=== PATIENT | male | born 1960 | race Caucasian/White ===

== ENCOUNTER 2017-07-06 08:52 | Observation (INO) | payer SELFPAY ==
[~2017-07-06] VITALS: Ht 188 cm; Wt 113.6 kg
[2017-07-06] VITALS (9 sets, daily range): BP systolic 139–185; BP diastolic 82–101; PULSE 75–94; RESP 17–18; TEMP 98.4–99; O2SAT 95–97
[2017-07-06] MEDS: SODIUM CHLOR 0.9% 1000 ML INJ 1,000 ML IV SCH ×2 (00:15→12:42)
--- NOTE | 2017-07-06 09:12 | PD ---
HPI Chief Complaint: Neuro Symptoms/ Deficits Time Seen by Provider: 09:03 Travel History International Travel<30 days: No Contact w/Intl Traveler<30days: No History of Present Illness HPI 56yo M with PMH of alcohol abuse, CVA with decreased sensation in left face was brought in by EVAC as stroke alert after falling and becoming unconscious and then having difficulty speaking. When pt arrived, he said he last remember his friend banging on his door to get him to get up. He does not remember getting into a car or getting out of the passenger seat. As per EVAC, he got out of the passenger seat, fell and was found down and unresponsive for a second. Then he woke up and seems to have difficulty coming up with words. Pt denies any chest pain, sob, n/v, abdominal pain, focal weakness or numbness. Blood glucose 97. EVAC said last normal is 8:20am right before he got out of the car. However, pt said he does not remember even getting into the car. PFSH Past Medical History Cerebrovascular Accident: Yes Social History Tobacco Use: No Allergies-Medications (Allergen,Severity, Reaction): Coded Allergies: No Known Allergies (Unverified , 07/06/17) Reported Meds & Prescriptions Reported Meds & Active Scripts Active No Active Prescriptions or Reported Medications Review of Systems Except as stated in HPI: all other systems reviewed are Neg Physical Exam Narrative GENERAL: 56yo M in mild distress. SKIN: Focused skin assessment warm/dry. HEAD: Atraumatic. Normocephalic. EYES: Pupils equal and round at 3mm bilaterally. EOMI. ENT: No nasal bleeding or discharge. Mucous membranes pink and moist. NECK: Trachea midline. No JVD. CARDIOVASCULAR: Regular rate and rhythm. No murmur appreciated. RESPIRATORY: No accessory muscle use. Clear to auscultation. Breath sounds equal bilaterally. GASTROINTESTINAL: Abdomen soft, non-tender, nondistended. MUSCULOSKELETAL: No obvious deformities. No clubbing. No cyanosis. No edema. NEUROLOGICAL: Awake and alert. No obvious cranial nerve deficits. Motor grossly within normal limits. Sensation intact. Normal speech. NIH stroke scale 1 with mild aphasia. Patient can describe some of the objects in the picture and can read some of the words. Difficult to assess if this is his baseline. Data Data Last Documented VS Vital Signs Date Time Temp Pulse Resp B/P (MAP) Pulse Ox O2 Delivery O2 Flow Rate FiO2 1/26/18 09:16 80 18 164/86 (112) 97 Room Air Orders Orders Ct Brain W/O Iv Contrast(Rout) (07/06/17 ) Complete Blood Count With Diff (07/06/17 09:07) Basic Metabolic Panel (Bmp) (07/06/17 09:07) Prothrombin Time / Inr (Pt) (07/06/17 09:07) Act Partial Throm Time (Ptt) (07/06/17 09:07) Troponin I (07/06/17 09:07) Alcohol (Ethanol) (07/06/17 09:07) Cta Brain W Iv Contrast W 3d (07/06/17 09:19) Cta Neck W Iv Contrast W 3d (07/06/17 09:19) Iodixanol 320 Inj (Rad Ct) (Visipaque 32 (07/06/17 09:43) Thiamine Inj (Thiamine Inj) (07/06/17 10:45) Mri Brain W/O Contrast (07/06/17 ) Consult Neurology (07/06/17 ) (Hub Use Only)Inp Phy Cons/Ref (07/06/17 ) Thiamine (Vit B1) (Vitamin B1) (07/06/17 12:00) Thiamine (Vit B1) (Vitamin B1) (07/07/17 09:00) Aspirin (Aspirin) (07/06/17 11:15) Admit Order (Ed Use Only) (07/06/17 11:16) Labs Laboratory Tests Test 07/06/17 09:05 White Blood Count 4.5 TH/MM3 Red Blood Count 4.88 MIL/MM3 Hemoglobin 16.0 GM/DL Hematocrit 46.7 % Mean Corpuscular Volume 95.7 FL Mean Corpuscular Hemoglobin 32.8 PG Mean Corpuscular Hemoglobin Concent 34.2 % Red Cell Distribution Width 13.8 % Platelet Count 176 TH/MM3 Mean Platelet Volume 7.4 FL Neutrophils (%) (Auto) 53.9 % Lymphocytes (%) (Auto) 33.6 % Monocytes (%) (Auto) 6.8 % Eosinophils (%) (Auto) 3.6 % Basophils (%) (Auto) 2.1 % Neutrophils # (Auto) 2.4 TH/MM3 Lymphocytes # (Auto) 1.5 TH/MM3 Monocytes # (Auto) 0.3 TH/MM3 Eosinophils # (Auto) 0.2 TH/MM3 Basophils # (Auto) 0.1 TH/MM3 CBC Comment DIFF FINAL Differential Comment Prothrombin Time 9.8 SEC Prothromb Time International Ratio 1.0 RATIO Activated Partial Thromboplast Time 25.6 SEC Blood Urea Nitrogen 8 MG/DL Creatinine 0.82 MG/DL Random Glucose 105 MG/DL Calcium Level 8.3 MG/DL Sodium Level 138 MEQ/L Potassium Level 5.4 MEQ/L Chloride Level 105 MEQ/L Carbon Dioxide Level 24.8 MEQ/L Anion Gap 8 MEQ/L Estimat Glomerular Filtration Rate 97 ML/MIN Hemoglobin A1c 5.7 % Troponin I LESS THAN 0.02 NG/ML Ethyl Alcohol Level 224 MG/DL [facility] Medical Decision Making Medical Screen Exam Complete: Yes Emergency Medical Condition: Yes Interpretation(s) EKG: NSR 84bpm. Normal axis. NO ST segment elevation or depression. Differential Diagnosis Seizure vs. syncope vs. CVA vs. hypoglycemia vs. alcohol intoxication vs. alcohol withdrawal seizure Narrative Course 56yo M with PMH of alcohol abuse and CVA was called as a stroke alert by EVAC. However, he does not remember what happened or even being in the car. ?Seizure or syncope. Pt does have mild aphasia in that pt becomes frustrated and can only read half the sentences and identify half the objects. Labs reviewed, no leukocytosis. H/H normal. K: 5.4, but slightly hemolyzed. Troponin negative. Blood alcohol 224. CT brain negative. Discussed with Dr. Alcaraz at 10:11am who recommends following up on the CTA and if negative, to obtain an MRI brain w /o contrast to see if there is a recent stroke. CTA head showed no major branch vessel occlusion. CTA neck negative. Dr. Alcaraz said if CTA negative, then he would recommend an MRI brain without contrast now. MRI brain ordered. Pt given thiamine IV. Pt likely just with alcohol intoxication but cannot rule out CVA for sure. Will admit for syncope vs. CVA work up. Diagnosis Primary Impression: Syncope Qualified Codes: R55 - Syncope and collapse Admitting Information Admitting Physician Requests: Observation Scripts No Active Prescriptions or Reported Meds Edna Zapata DO Jul 06, 2017 09:12
--- NOTE | 2017-07-06 09:28 | RADRPT ---
EXAM DATE/TIME: 07/06/2017 09:06 [facility] COMPARISON: No previous studies available for comparison. INDICATIONS : Expressive aphasia and confusion. RADIATION DOSE: 42.33 CTDIvol (mGy) MEDICAL HISTORY : None SURGICAL HISTORY : None. ENCOUNTER: Initial ACUITY: 1 day PAIN SCALE: 0/10 LOCATION: cranial TECHNIQUE: Multiple contiguous axial images were obtained of the head. Using automated exposure control and adj ustment of the mA and/or kV according to patient size, radiation dose was kept as low as reasonably a chievable to obtain optimal diagnostic quality images. DICOM format image data is available electro nically for review and comparison. FINDINGS: CEREBRUM: The ventricles are normal for age. No evidence of midline shift, mass lesion, hemorrhage or acute in farction. No extra-axial fluid collections are seen. POSTERIOR FOSSA: The cerebellum and brainstem are intact. The 4th ventricle is midline. The cerebellopontine angle i s unremarkable. EXTRACRANIAL: The visualized portion of the orbits is intact. SKULL: The calvaria is intact. No evidence of skull fracture. CONCLUSION: Negative for acute process. Neel Elizondo MD FACR on July 06, 2017 at 9:24 Board Certified Radiologist. This report was verified electronically.
[2017-07-06 09:40] LABS: AUTOMATED NEUTROPHIL # 2.4 TH/MM3 (1.8-7.7); BASOPHIL # 0.1 TH/MM3 (0-0.2); BASOPHIL % 2.1 % (0.0-2.0); EOSINOPHIL # 0.2 TH/MM3 (0-0.4); EOSINOPHIL % 3.6 % (0.0-4.0); HEMATOCRIT 46.7 % (39.0-51.0); LYMPH % 33.6 % (9.0-44.0); LYMPHOCYTE # 1.5 TH/MM3 (1.0-4.8); MEAN CELL VOLUME 95.7 FL (80.0-100.0); MEAN CORPUSCULAR HEMOGLOBIN 32.8 PG (27.0-34.0); MEAN CORPUSCULAR HGB CONC 34.2 % (32.0-36.0); MEAN PLATELET VOLUME 7.4 FL (7.0-11.0); MONO % 6.8 % (0.0-8.0); MONOCYTE # 0.3 TH/MM3 (0-0.9); NEUT % 53.9 % (16.0-70.0); PLATELET COUNT 176 TH/MM3 (150-450); RED BLOOD COUNT 4.88 MIL/MM3 (4.50-5.90); RED CELL DISTRIBUTION WIDTH 13.8 % (11.6-17.2); WHITE BLOOD COUNT 4.5 TH/MM3 (4.0-11.0)
[2017-07-06] MEDS ORDERED: IODIXANOL 320 MG/ML 10 ML VIAL (for Rad CT) IVCONTRAST ONE (09:43)
[2017-07-06 09:46] LABS: PROTHROMBIN TIME - PATIENT 9.8 SEC (9.8-11.6)
[2017-07-06 09:59] LABS: TROPONIN I LESS THAN 0.02 NG/ML (0.02-0.05)
[2017-07-06 10:02] LABS: BICARBONATE 24.8 MEQ/L (21.0-32.0); BLOOD UREA NITROGEN 8 MG/DL (7-18); CALCIUM 8.3 MG/DL (8.5-10.1); CHLORIDE 105 MEQ/L (98-107); CREATININE 0.82 MG/DL (0.60-1.30); GLOMERULAR FILTRATION RATE 97 ML/MIN (>89); GLUCOSE,RANDOM 105 MG/DL (74-106); SODIUM (NA) 138 MEQ/L (136-145)
--- NOTE | 2017-07-06 10:34 | RADRPT ---
EXAM DATE/TIME: 07/06/2017 09:35 [facility] COMPARISON: No previous studies available for comparison. INDICATIONS : Syncope and confusion IV CONTRAST: 50 cc Visipaque (iodixanol) IV RADIATION DOSE: 10.61 CTDIvol (mGy) MEDICAL HISTORY : Cerebrovascular disease. SURGICAL HISTORY : None. ENCOUNTER: Initial ACUITY: 1 day PAIN SCALE: Non-responsive LOCATION: cranial TECHNIQUE: Volumetric scanning was performed using a multi-row detector CT scanner. The data was post processed with a variety of visualization algorithms including full volume maximum intensity projection, multi -planar sliding thin slab reformation, curved planar reformation, and surface rendering techniques. Using automated exposure control and adjustment of the mA and/or kV according to patient size, radiat ion dose was kept as low as reasonably achievable to obtain optimal diagnostic quality images. DICO M format image data is available electronically for review and comparison. FINDINGS: There is excellent visualization of the major intracranial arteries out to the second-order branch ve ssels. There is no evidence for aneurysm, vessel truncation or stenosis, and no evidence for vascula r malformation. There is no major branch vessel occlusion. Mild atherosclerotic intercranial vascular disease. CONCLUSION: No major branch vessel occlusion. Neel Elizondo MD FACR on July 06, 2017 at 10:31 Board Certified Radiologist. This report was verified electronically.
--- NOTE | 2017-07-06 10:35 | RADRPT ---
EXAM DATE/TIME: 07/06/2017 09:35 [facility] COMPARISON: No previous studies available for comparison. INDICATIONS : Syncope and confusion IV CONTRAST: 50 cc Visipaque (iodixanol) IV ; Cumulative dose for multiple exams. RADIATION DOSE: 10.61 CTDIvol (mGy) ; Combined studies MEDICAL HISTORY : Cerebrovascular disease. SURGICAL HISTORY : None. ENCOUNTER: Initial ACUITY: 1 day PAIN SCALE: Non-responsive LOCATION: neck Elevated flow velocities and ICA/CCA ratios have been found to correlate with increased degrees of vessel stenosis, calculated as percentage of diameter relative to a normal segment of distal ICA/CCA. TECHNIQUE: Volumetric scanning was performed using a multirow detector CT scanner. The data was post processed with a variety of visualization algorithms including full-volume maximum intensity projection, multip lanar sliding thin-slab reformation, curved-planar reformation, and surface-rendering techniques. Us ing automated exposure control and adjustment of the mA and/or kV according to patient size, radiatio n dose was kept as low as reasonably achievable to obtain optimal diagnostic quality images. DICOM f ormat image data is available electronically for review and comparison. FINDINGS: AORTIC ARCH: There is a three-vessel origin of the great vessels from the aorta. No evidence of ostial narrowing. RIGHT CAROTID: The common carotid artery is intact. The carotid bulb has a normal configuration without ulceration o r narrowing. The internal carotid artery lumen is smooth without stenosis. The external carotid aubrey ry is intact. LEFT CAROTID: The common carotid artery is intact. The carotid bulb has a normal configuration without ulceration or narrowing. The internal carotid artery lumen is smooth without stenosis. The external carotid ar nathan is intact. VERTEBRALS: The vertebral arteries have a symmetric diameter. No stenotic lesions are seen. CONCLUSION: Negative. Minimal atherosclerotic coronary artery disease is noted. Neel Elizondo MD FACR on July 06, 2017 at 10:32 Board Certified Radiologist. This report was verified electronically.
[2017-07-06] MEDS ORDERED: THIAMINE INJ 100 MG in SODIUM CHLORIDE 0.9% INJ 100 ML IV ONE (10:45)
[2017-07-06] MEDS ORDERED: GLUCAGON 1 MG/ML VIAL OTHER PRN (11:15)
[2017-07-06] MEDS ORDERED: DEXTROSE 50% IN WATER 50 ML VIAL(D50) IV PUSH PRN (11:15)
[2017-07-06] MEDS ORDERED: SODIUM CHLORIDE 0.9% FLUSH 10 ML FLUSH IV FLUSH PRN (11:15)
[2017-07-06] MEDS ORDERED: ASPIRIN 325 MG TAB PO ONE (11:15)
[2017-07-06] MEDS ORDERED: SODIUM CHLORID 0.9% 500 ML INJ 500 ML IV ONE (11:30)
[2017-07-06] MEDS ORDERED: THIAMINE HCL 100 MG TAB PO ONE (12:00)
[2017-07-06] MEDS: INSULIN ASPART SUPPLEMENTAL SCALE SQ SCH ×3 (12:00→21:00)
[2017-07-06] MEDS ORDERED: SODIUM POLYSTYRENE SULFONATE SUSP 15 GM/60 ML CUP PO ONE (13:15)
[2017-07-06] MEDS ORDERED: FLUMAZENIL 0.5 MG/5 ML VIAL IV PUSH PRN (13:15)
[2017-07-06] MEDS ORDERED: ENALAPRILAT 1.25 MG/ML VIAL IV PUSH PRN (13:15)
[2017-07-06] MEDS ORDERED: LORazepam 1 MG TAB PO PRN (13:15)
[2017-07-06] MEDS ORDERED: LORazepam 2 MG/ML VIAL IV PUSH PRN ×4 (13:15)
--- NOTE | 2017-07-06 13:20 | HHI.HP ---
[facility] Service [facility] Primary Care Physician No Primary Care Physician Admission Diagnosis Syncope vs. TIA Diagnoses: Travel History International Travel<30 Days: No Contact w/Intl Traveler <30 Da: No History of Present Illness 56-year-old male with a history of chronic alcoholism, tobacco use, reported history of stroke in the past, who presents with confusion, slurred speech this morning. Patient says he does not remember anything that happened this morning up until now. He assumes he went through his daily routine, however per report he fell, did not remember driving with his colleague in the car this morning. He says he usually wakes up with his friend, has a shot of liquor, and goes to work. Nobody at bedside currently. Patient says that he feels like his speech is back to normal, mentation is back to normal. He denies any chest pain, shortness of breath, nausea, vomiting, lightheadedness, dizziness. He was however reportedly passed out this morning according to colleague. Patient says he drinks a lot, about six 16 ounce beers per day. Well as Shot in the mornings. He is requesting benzodiazepine taper at discharge. Review of Systems Except as stated in HPI: all other systems reviewed are Neg Past Family Social History Past Medical History Patient reports history of stroke symptoms years ago. patient reports chronic alcoholism as above. Past Surgical History Patient denies any surgical history. Reported Medications Patient denies taking any medications. Allergies: Coded Allergies: No Known Allergies (Unverified , 07/06/17) Family History Mother secondary to [place] and advanced age. Father secondary to cancer in his 70s. Social History Reports smoking one half pack per day for the past 3 years. Patient drinks about 6 cans of ear per day. A shot of liquor in the mornings. He denies any history of seizures, however does report shakes and sweats with withdrawal. Denies any illicit drugs. Physical Exam Vital Signs Vital Signs Date Time Temp Pulse Resp B/P (MAP) Pulse Ox O2 Delivery O2 Flow Rate FiO2 07/06/17 09:16 80 18 164/86 (112) 97 Room Air 07/06/17 08:55 81 17 185/101 (129) Physical Exam GENERAL: This is a well-nourished, well-developed patient, in no apparent distress. He is alert and oriented 3. SKIN: No rashes, ecchymoses or lesions. Cool and dry. HEAD: Atraumatic. Normocephalic. No temporal or scalp tenderness. EYES: Pupils equal round and reactive. Extraocular motions intact. No scleral icterus. No injection or drainage. ENT: Nose without bleeding, purulent drainage or septal hematoma. Throat without erythema, tonsillar hypertrophy or exudate. Uvula midline. Airway patent. NECK: Trachea midline. No JVD or lymphadenopathy. Supple, nontender, no meningeal signs. CARDIOVASCULAR: Regular rate and rhythm without murmurs, gallops, or rubs. RESPIRATORY: Clear to auscultation. Breath sounds equal bilaterally. No wheezes , rales, or rhonchi. GASTROINTESTINAL: Abdomen soft, non-tender, nondistended. No hepato-splenomegaly , or palpable masses. No guarding. MUSCULOSKELETAL: Extremities without clubbing, cyanosis, or edema. No joint tenderness, effusion, or edema noted. No calf tenderness. Negative Homans sign bilaterally. NEUROLOGICAL: Awake and alert. Cranial nerves II through XII intact. Does have mild ataxia of all 4 extremities .Five out of 5 muscle strength in all muscle groups. Normal speech. Laboratory Laboratory Tests Test 07/06/17 09:05 White Blood Count 4.5 Red Blood Count 4.88 Hemoglobin 16.0 Hematocrit 46.7 Mean Corpuscular Volume 95.7 Mean Corpuscular Hemoglobin 32.8 Mean Corpuscular Hemoglobin Concent 34.2 Red Cell Distribution Width 13.8 Platelet Count 176 Mean Platelet Volume 7.4 Neutrophils (%) (Auto) 53.9 Lymphocytes (%) (Auto) 33.6 Monocytes (%) (Auto) 6.8 Eosinophils (%) (Auto) 3.6 Basophils (%) (Auto) 2.1 Neutrophils # (Auto) 2.4 Lymphocytes # (Auto) 1.5 Monocytes # (Auto) 0.3 Eosinophils # (Auto) 0.2 Basophils # (Auto) 0.1 CBC Comment DIFF FINAL Differential Comment Prothrombin Time 9.8 Prothromb Time International Ratio 1.0 Activated Partial Thromboplast Time 25.6 Blood Urea Nitrogen 8 Creatinine 0.82 Random Glucose 105 Calcium Level 8.3 Sodium Level 138 Potassium Level 5.4 Chloride Level 105 Carbon Dioxide Level 24.8 Anion Gap 8 Estimat Glomerular Filtration Rate 97 Troponin I LESS THAN 0.02 Ethyl Alcohol Level 224 Result Diagram: 07/06/1790407/06/17904 Imaging Last Impressions Neck CTA 07/06/17918 Signed Impressions: Service Date/Time: Thursday, July 06, 2017 09:35 - CONCLUSION: Negative. Minimal atherosclerotic coronary artery disease is noted. Neel Elizondo MD FACR Head CTA 07/06/17918 Signed Impressions: Service Date/Time: Thursday, July 06, 2017 09:35 - CONCLUSION: No major branch vessel occlusion. Neel Elizondo MD FACR Head CT 07/06/17 0000 Signed Impressions: Service Date/Time: Thursday, July 06, 2017 09:06 - CONCLUSION: Negative for acute process. Neel Elizondo MD FACR Caprini VTE Risk Assessment Caprini VTE Risk Assessment: No/Low Risk (score <= 1) Caprini Risk Assessment Model Point Value = 1 Point Value = 2 Point Value = 3 Point Value = 5 Age 41-60 Minor surgery BMI > 25 kg/m2 Swollen legs Varicose veins or History of unexplained or recurrent spontaneous Oral contraceptives or hormone replacement Sepsis (< 1 month) Serious lung disease, including pneumonia (< 1 month) Abnormal pulmonary function Acute myocardial infarction Congestive heart failure (< 1 month) History of inflammatory bowel disease Medical patient at bed rest Age 61-74 Arthroscopic surgery Major open surgery (> 45 min) Laparoscopic surgery (> 45 min) Malignancy Confined to bed (> 72 hours) Immobilizing plaster cast Central venous access Age >= 75 History of VTE Family history of VTE Factor V Leiden Prothrombin [id number] Lupus anticoagulant Anticardiolipin antibodies Elevated serum homocysteine Heparin-induced thrombocytopenia Other congenital or acquired thrombophilia Stroke (< 1 month) Elective arthroplasty Hip, pelvis, or leg fracture Acute spinal cord injury (< 1 month) Prophylaxis Regimen Total Risk Factor Score Risk Level Prophylaxis Regimen 0-1 Low Early ambulation 2 Moderate Order ONE of the following: *Sequential Compression Device (SCD) *Heparin 5000 units SQ BID 3-4 Higher Order ONE of the following medications: *Heparin 5000 units SQ TID *Enoxaparin/Lovenox 40 mg SQ daily (WT < 150 kg, CrCl > 30 mL/min) *Enoxaparin/Lovenox 30 mg SQ daily (WT < 150 kg, CrCl > 10-29 mL/min) *Enoxaparin/Lovenox 30 mg SQ BID (WT < 150 kg, CrCl > 30 mL/min) AND/OR *Sequential Compression Device (SCD) 5 or more Highest Order ONE of the following medications: *Heparin 5000 units SQ TID (Preferred with Epidurals) *Enoxaparin/Lovenox 40 mg SQ daily (WT < 150 kg, CrCl > 30 mL/min) *Enoxaparin/Lovenox 30 mg SQ daily (WT < 150 kg, CrCl > 10-29 mL/min) *Enoxaparin/Lovenox 30 mg SQ BID (WT < 150 kg, CrCl > 30 mL/min) AND *Sequential Compression Device (SCD) Assessment and Plan Assessment and Plan //Suspicion of stroke versus TIA by the ER, neurology. -Patient with reported history of stroke like symptoms years ago. -CT, CT angiogram of neck, brain negative for acute findings or stenosis. -MRI recommended by neurology and has been ordered. -Neurology consulted. MRI pending. Appreciate assistance. //Alcoholism. //Inebriated on admission -Heavy drinking. Alcohol 241 on admission, 3 times the legal driving limits. Patient counseling provided //etoh withdrawal -Patient reports history withdrawal without seizures. Requesting denies pain taper at discharge. = [facility] protocol here =Librium taper at discharge. //Hyperkalemia. Potassium 5.4. Hemolysis noted. Recheck. //Tobacco abuse. Cessation counseling provided. //Hypertension. Systolic blood pressure in the 180s on admission. Continue to monitor. Further medications to be added Discussed Condition With patient , nurse, ED physician. Shakir Petit MD Jul 06, 2017 13:20
--- NOTE | 2017-07-06 13:21 | RADRPT ---
EXAM DATE/TIME: 07/06/2017 12:48 [facility] COMPARISON: No previous studies available for comparison. INDICATIONS : Aphasia. Resolved. MEDICAL HISTORY : CVA. SURGICAL HISTORY : None. ENCOUNTER: Initial ACUITY: 1 day PAIN SCORE: 0/10 LOCATION: cranial TECHNIQUE: Multiplanar, multisequence MRI of the brain was performed without contrast. FINDINGS: CEREBRUM: The ventricles are normal for age. No evidence of midline shift, mass lesion, hemorrhage or acute in farction. No extraaxial fluid collections are seen. The pituitary gland and suprasellar cistern are normal in configuration. WHITE MATTER: No significant signal abnormalities are seen in the white matter. POSTERIOR FOSSA: The cerebellum and brainstem are intact. The 4th ventricle is midline. The cerebellopontine angle is unremarkable. The cerebellar tonsils are normal in position. DIFFUSION IMAGING: No focal areas of restricted diffusion are seen. No evidence of acute infarction. Minimal hemosider in is seen in the left cerebral peduncle. EXTRACRANIAL: The visualized portions of the orbits and paranasal sinuses are unremarkable. CONCLUSION: Negative for acute process. Neel Elizondo MD FACR on July 06, 2017 at 13:17 Board Certified Radiologist. This report was verified electronically.
--- NOTE | 2017-07-06 13:36 | MB ---
cc: ANGY NOVOA M.D. DATE OF CONSULTATION 07/06/2017 HISTORY OF PRESENT ILLNESS He is a 56-year-old seen in neurological consultation. I spoke to the ED physician on a couple of occasions, Dr. Zapata. The patient he is an alcoholic and admits drinking heavily especially at night in order to go to sleep. He says he went to bed around one or two in the morning and it appears that he woke up a few hours later. A friend was taking him to work and he does not remember details as he apparently got out of the car and passed out, fell. At some point subsequent to that he was noted to be talking inappropriately or abnormally. This seems to have improved. The patient is telling me that this is all from stress. He admits to a tremendous amount of stress and he admits major alcohol use. MEDICATIONS He does not take any medication at all, not even aspirin. 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 NEUROLOGICAL EXAMINATION The exam showed him to be alert and he was pleasant, mildly anxious, oriented. His speech is stuttering at times with fluctuations but there is no aphasia in any obvious manner. The ocular movements were full as well as the visual bui. He has good strength throughout. Perception to sensory stimuli is normal bilaterally. Reflexes were 1+, symmetrical and plantar responses were flexor. There is a small bruise on the right forehead. IMAGING STUDIES CT brain, CTA head and neck were essentially negative, unremarkable studies. ASSESSMENT Syncope. Alcohol abuse. Initially there was some possible aphasia which has resolved and now there is stuttering. Very questionable cerebrovascular source. As this is discussed with Dr. Zapata, we are waiting on an MRI brain, but at this point considering the current findings and NIH stroke scale being essentially 0, no t-PA will be offered. PLAN We will plan on doing an EEG and I will review the MRI brain as well. I have discussed with the patient the alcohol situation and he actually brings this to my attention and understands it well. He may benefit from psychiatric consultation for the excessive use of alcohol and the stress as he admits these being a major event. Thank you for asking us to assist in his care. MD CORETTA Iqbal/SSB /11:14 AM /1:23 PM
[2017-07-06 15:30] LABS: HEMOGLOBIN A1C 5.7 % (4.3-6.0)
[2017-07-06 15:40] LABS: BICARBONATE 25.5 MEQ/L (21.0-32.0); CALCIUM 8.1 MG/DL (8.5-10.1); CREATININE 0.69 MG/DL (0.60-1.30)
[2017-07-06] MEDS: LORazepam 2 MG TAB PO PRN (21:39)
[2017-07-06] MEDS: SODIUM CHLORIDE 0.9% FLUSH 10 ML FLUSH IV FLUSH SCH (21:39)
--- NOTE | 2017-07-06 22:16 | MG ---
cc: ANGY NOVOA MD Lab No: Date: 07/06/17 Age: 56 Sex: M Race: An EEG was obtained on this 56-year-old patient being evaluated for syncope. The EEG shows a mixture of beta with some alpha rhythms. There is also some intermixed theta activity bilaterally. Sharp contoured waves are seen but no definitive sharp discharges or spikes are present. There is awake and drowsiness in this recording. There is muscle artifact. Photic stimulation showed no change. INTERPRETATION Mildly abnormal EEG because of intermittent mild slowing suggesting a mild diffuse disturbance of cerebral function. No epileptiform features are present. MD CORETTA Iqbal/ /7:53 PM /10:03 PM
[2017-07-07] VITALS (7 sets, daily range): BP systolic 151–167; BP diastolic 93–99; PULSE 66–84; RESP 17–18; TEMP 98–98.7; O2SAT 95–96
[2017-07-07 07:41] LABS: CHOLESTEROL/ HDL RATIO 1.85 RATIO; HDL CHOLESTEROL 98.4 MG/DL (40.0-60.0)
[2017-07-07] MEDS: INSULIN ASPART SUPPLEMENTAL SCALE SQ SCH ×2 (08:00→12:00)
[2017-07-07] MEDS ORDERED: ASPIRIN 81 MG CHEW TAB PO SCH (09:00)
[2017-07-07] MEDS ORDERED: THIAMINE HCL 100 MG TAB PO SCH (09:00)
[2017-07-07] MEDS: SODIUM CHLORIDE 0.9% FLUSH 10 ML FLUSH IV FLUSH SCH (09:05)
[2017-07-07] MEDS: LORazepam 2 MG TAB PO PRN (09:05)
--- NOTE | 2017-07-07 11:10 | HHI.PR ---
Subjective Remarks Follow-up alcohol intoxication. States he is firm to stop alcohol. He will talk to his roommate. States he has quit alcohol 2 times before. He knows he can do it discussed with nursing staff Objective Vitals Vital Signs Date Time Temp Pulse Resp B/P (MAP) Pulse Ox O2 Delivery O2 Flow Rate FiO2 07/07/17 11:02 98.7 76 18 151/98 (115) 96 07/07/17 07:37 98.0 71 18 162/93 (116) 95 07/07/17 04:29 98.4 71 17 167/99 (121) 95 07/07/17 04:00 66 07/07/17 00:02 84 07/06/17 23:39 98.4 75 17 174/97 (122) 95 07/06/17 21:02 99.0 81 17 177/94 (121) 96 07/06/17 20:10 90 07/06/17 20:10 90 07/06/17 18:17 80 07/06/17 18:01 99.0 77 18 139/88 (105) 96 07/06/17 17:01 07/06/17 16:34 94 17 172/84 (113) 97 Room Air 07/06/17 13:49 81 17 160/82 (108) 97 Room Air I/O 07/06/17 07/06/17 07/06/17 07/07/17 07/07/17 07/07/17 07:00 15:00 23:00 07:00 15:00 23:00 Intake Total 500 ml 101 ml Balance 500 ml 101 ml Intake IV Total 500 ml 101 ml Result Diagram: 07/06/1790407/06/17 1422 Imaging Last Impressions Neck CTA 07/06/17918 Signed Impressions: Service Date/Time: Thursday, July 06, 2017 09:35 - CONCLUSION: Negative. Minimal atherosclerotic coronary artery disease is noted. Neel Elizondo MD FACR Head CTA 07/06/17918 Signed Impressions: Service Date/Time: Thursday, July 06, 2017 09:35 - CONCLUSION: No major branch vessel occlusion. Neel Elizondo MD FACR Head CT 07/06/17 0000 Signed Impressions: Service Date/Time: Thursday, July 06, 2017 09:06 - CONCLUSION: Negative for acute process. Neel Elizondo MD FACR Brain MRI 07/06/17 0000 Signed Impressions: Service Date/Time: Thursday, July 06, 2017 12:48 - CONCLUSION: Negative for acute process. Neel Elizondo MD FACR Objective Remarks GENERAL: This is a well-nourished, well-developed patient, in no apparent distress. He is alert and oriented 3. SKIN: No rashes, ecchymoses or lesions. Cool and dry. CARDIOVASCULAR: Regular rate and rhythm without murmurs, gallops, or rubs. RESPIRATORY: Clear to auscultation. Breath sounds equal bilaterally. No wheezes , rales, or rhonchi. GASTROINTESTINAL: Abdomen soft, non-tender, nondistended. No guarding. MUSCULOSKELETAL: Extremities without clubbing, cyanosis, or edema. No joint tenderness, effusion, or edema noted. No calf tenderness. Negative Homans sign bilaterally. NEUROLOGICAL: Awake and alert. Cranial nerves II through XII intact. Does have mild ataxia of all 4 extremities .Five out of 5 muscle strength in all muscle groups. Normal speech. Procedures none A/P Problem List: (1) Syncope ICD Code: R55 - Syncope and collapse Status: Acute Assessment and Plan Syncope likely from alcohol intoxication. Patient with transient neuro deficits unable to rule out TIA. No CVA on workup. He is neurovascularly intact stable for discharge on Librium. Alcohol cessation. Continue aspirin. Risk factor modifications LDL 93 A1c 5.7. EEG no seizure. Telemetry unremarkable. Patient to return Holter monitor Tobacco abuse. Cessation counseling provided. Hypertension. Systolic blood pressure in the 180s on admission. Continue to monitor. Expected to improve with complete alcohol cessation Discharge Planning Discharge patient to home Condition on discharge: Improved Regular Diet as tolerated Ad Tanja activity no driving Rx written: Aspirin, Librium and thiamine Follow-up with primary care physician Problem Qualifiers (1) Syncope: Qualified Codes: R55 - Syncope and collapse Hernesto Ocasio MD Jul 07, 2017 11:10
--- NOTE | 2017-07-07 11:15 | ECHRPT ---
Indication: CVA/TIA CONCLUSIONS Normal left ventricular size. Mild concentric left ventricular hypertrophy. A prominent epicardial fat pad is present. Very technically difficult study. The left ventricular systolic function is normal with an estimated ejection fraction in the range of 60-65%. BP: 162 / 93 HR: 71 Rhythm: Sinus MEASUREMENTS (Male / Female) Normal Values Technical Quality:Very technically difficult study 2D ECHO LV Diastolic Diameter PLAX 3.9 cm 4.2 - 5.9 / 3.9 - 5.3 cm LV Systolic Diameter PLAX 2.8 cm IVS Diastolic Thickness 1.3 cm 0.6 - 1.0 / 0.6 - 0.9 cm LVPW Diastolic Thickness 1.3 cm 0.6 - 1.0 / 0.6 - 0.9 cm LV Relative Wall Thickness 0.7 RV Internal Dim ED PLAX 3.7 cm DOPPLER AV Peak Velocity 106.0 cm/s AV Peak Gradient 4.5 mmHg AV Mean Gradient 2.0 mmHg AV Velocity Time Integral 19.8 cm LVOT Peak Velocity 72.9 cm/s LVOT Peak Gradient 2.1 mmHg LVOT Velocity Time Integral 11.8 cm Mitral E Point Velocity 81.4 cm/s Mitral A Point Velocity 92.3 cm/s Mitral E to A Ratio 0.9 LV E' Lateral Velocity 7.5 cm/s Mitral E to LV E' Lateral Ratio 10.8 LV E' Septal Velocity 8.6 cm/s Mitral E to LV E' Septal Ratio 9.5 FINDINGS LEFT VENTRICLE Normal left ventricular size. Mild concentric left ventricular hypertrophy. The left ventricular systolic function is normal with an estimated ejection fraction in the range of 60-65%. RIGHT VENTRICLE Normal right ventricular size and systolic function. LEFT ATRIUM The left atrial size is normal. RIGHT ATRIUM The right atrial size is normal. ATRIAL SEPTUM No atrial level shunt is demonstrated by color flow Doppler interrogation. AORTA The aortic root and proximal ascending aorta are not well visualized. MITRAL VALVE The mitral valve is not well visualized. AORTIC VALVE The aortic valve is not well visualized. TRICUSPID VALVE The tricuspid valve is not well visualized. PULMONARY VALVE The pulmonary valve is not well visualized. VESSELS The inferior vena cava is normal in size. PERICARDIUM A prominent epicardial fat pad is present. Beni Conklin MD, FACC (Electronically Signed) Final Date:07 July 2017 11:14
[2017-07-07] MEDS: SODIUM CHLOR 0.9% 1000 ML INJ 1,000 ML IV SCH (11:20)
--- NOTE | 2017-07-07 13:44 | EKG ---
Date Performed: 07/06/2017 Time Performed: 09:01:46 PTAGE: 56 years EKG: Sinus rhythm WITH SINUS ARRHYTHMIA MODERATE ST DEPRESSION ABNORMAL ECG NO PREVIOUS TRACING DOCTOR: Jd Linton Interpretating Date/Time 07/07/2017 13:42:22
[2017-07-07] MEDS ORDERED: THIA100 PO (14:16)
[2017-07-07] MEDS ORDERED: CHLO10CA5 PO (14:16)
--- NOTE | 2017-07-07 14:17 | HHI.DCPOC ---
Discharge Care Plan Diagnosis: (1) Alcohol withdrawal (2) Syncope Goals to Promote Your Health * To prevent worsening of your condition and complications * To maintain your health at the optimal level Directions to Meet Your Goals Take your medications as prescribed Follow your dietary instruction Follow activity as directed Keep your appointments as scheduled Take your immunizations and boosters as scheduled If your symptoms worsen call your PCP, if no PCP go to Urgent Care Center or Emergency Room Smoking is Dangerous to Your Health. Avoid second hand smoke Call the 24-hour hour crisis hotline for domestic abuse at Laurita Fiore PA-C Jul 07, 2017 2:17 pm
[2017-07-07] MEDS ORDERED: ASPI-147 PO (14:43)
--- NOTE | 2017-07-08 12:45 | HM ---
Date Performed: 07/06/2017 Time Performed: 18:42:00 HOOKUP DATE: 07/06/17 06:42:00 PM Fri ANALYSIS START TIME: 07/06/2017 6:47:00 PM ANALYSIS END TIME: 07/07/2017 2:52:13 PM PATIENT AGE: 56 PATIENT HEIGHT PATIENT WEIGHT DRUG LIST PATIENT DIAGNOSIS TEST NARRATIVE: The patient's average heart rate was 79 BPM. Heart rates greater than 120 B PM were noted 1% of the time. No episodes of bradycardia were noted. No pauses exceeding 2.0 sec onds were noted. 12 ventricular ectopics, which represented < 1% of the total beat count, were no marilyn. The highest ventricular ectopic frequency occurred from 08:00 PM to 09:00 PM Fri. During this time 4 VE(s) occurred. Ventricular ectopics were observed as 12 isolated beat(s) only. No couplets or runs were noted. 35 supraventricular ectopics, which represented < 1% of the total beat count, were noted. The highest supraventricular ectopic frequency occurred from 01:00 PM to 02:00 PM Sat. During this time 21 SVE(s) occurred. No episodes of ST depression (defined as -1.0 mm or more) w ere noted in channel 1. No episodes of ST depression (defined as -1.0 mm or more) were noted in zel[facility] padmini 2. No episodes of ST depression (defined as -1.0 mm or more) were noted in channel 3. TEST INTERPRETATION: Agree with dictation above Signed by : Jd Linton
== END 2017-07-07 15:16 | disposition home or self-care (01) ==
LOC: NEPE 08:52 → NEDA 11:17 → NEPHCDU 17:22
PROVIDERS: ADMIT Internal Medicine; ATTEND Internal Medicine
DX: F10.239 Alcohol dependence with withdrawal, unspecified (principal); Z86.73 Personal history of transient ischemic attack (TIA), and cerebral infarction without residual deficits; W19.XXXA Unspecified fall, initial encounter; Y90.7 Blood alcohol level of 200-239 mg/100 ml; R47.01 Aphasia; I67.9 Cerebrovascular disease, unspecified; R94.01 Abnormal electroencephalogram [EEG]; R94.31 Abnormal electrocardiogram [ECG] [EKG]; I49.8 Other specified cardiac arrhythmias; I10 Essential (primary) hypertension
CPT/HCPCS: 70450; 70496; 70498; 70551; 80048; 80061; 80307; 82948; 83036; 84484; 85025; 85610; 85730; 92610; 93005; 93225; 93226; 93306; 95819; 96361; 96365; 96376; 97161; 97166; 99285; G0378; G8987; G8988; G8996; G8997; G8998; J3411; J7030; J7040; Q9967